=== PATIENT | female | born 1995 | race Caucasian/White ===

== ENCOUNTER 2016-09-10 12:13 | Emergency (ER) | payer BC ==
[~2016-09-10] VITALS: Ht 170.2 cm; Wt 51.0 kg
[2016-09-10 12:14] VITALS: TEMP 36.5; Ht 170.2 cm; Wt 51.0 kg
--- NOTE | 2016-09-10 12:30 | EMERGENCY ROOM VISIT NOTE ---
History Report prepared by [place]: Ana Christie Under the Supervision of: Dr. Richard Husain M.D. First contact with patient: 12:18 Chief Complaint: CARDIAC ASSESSMENT Stated Complaint: FLUTTERING IN CHEST, DIZZY, WEAKNESS, DIARRHEA Nursing Triage Summary: c/o fluttering 1 hr ago and since then has gotten better but has not resolved no c/o pain pt has had diarrhea and is concerned for return of c diff History of Present Illness The patient is a 21 year old female who presents to the Emergency Room with complaints of persistent heart fluttering that began one hour ago. The patient reports a history of SVT and notes that she had a cardiac ablation. She states that she follows with cardiology. The patient additionally notes weakness, dizziness, and shortness of breath. The patient states that she is on control, but denies any history of blood clots. The patient additionally reports a history of c-diff one year ago. She states that when she had c-diff she was not on any antibiotics and she developed c-diff suddenly. The patient states that this morning she developed diarrhea and again denies any recent antibiotic use. She reports two episodes of diarrhea this morning. The patient reports a normal appetite. She denies any chest pain or abdominal pain. Source of History: patient Onset: one hour ago Position: other (heart) Quality: other (fluttering) Timing: other (persistent) Associated Symptoms: + SOB, + diarrhea, + weakness, No chest pain, No abdominal pain Note: Associated Symptoms: dizziness Review of Systems See HPI for pertinent positives & negatives. A total of 10 systems reviewed and were otherwise negative. Past Medical & Surgical Medical Problems: (1) Colitis (2) Seizure (3) Spontaneous pneumothorax (4) Supraventricular tachycardia Surgical Problems: (1) S/p ablation for SVT Family History Blood clots Diabetes mellitus MOTHER (type 2) FH: CAD (coronary artery disease) GRANDFATHER FH: colon cancer GRANDFATHER Social History Smoking Status: Never Smoker Alcohol Use: none Marital Status: single Housing Status: lives with family Occupation Status: student Current/Historical Medications Scheduled Control Pills ( Control Pills), 1 TAB PO DAILY Multiple Vitamin (Multivitamin), 1 TAB PO DAILY Probiotic Product (Probiotic), 1 CAP PO DAILY Scheduled PRN Naproxen Ds (Naprosyn Ds), 550 MG PO BID PRN for Pain Allergies Coded Allergies: No Known Allergies (Unverified , 09/10/16) Physical Exam Vital Signs Date Time Temp Pulse Resp B/P (MAP) Pulse Ox O2 Delivery O2 Flow Rate FiO2 09/10/16 14:34 68 18 98/63 97 Room Air 09/10/16 13:26 70 18 100/58 98 Room Air 09/10/16 12:31 83 09/10/16 12:14 36.5 91 16 142/83 99 Physical Exam GENERAL: Patient is a healthy-appearing well-nourished female HEAD: Normocephalic atraumatic EYES: Ocular movements intact pupils equal and react to light OROPHARYNX mucous membranes are moist no exudates present no erythema or edema present NECK: Supple no nuchal rigidity CHEST: Good equal expansion LUNGS: Clear and equal to auscultation CARDIAC: Normal S1 and S2 ABDOMEN: Soft nontender no guarding BACK: No CVA tenderness EXTREMITIES: No pain upon palpation normal muscle strength in all groups no clubbing cyanosis or edema NEURO: Patient is following commands and answering questions appropriately. Alert and oriented x3 Cranial Nerves 2-12 grossly intact Medical Decision & Procedures ER Provider Diagnostic Interpretation: X-ray results as stated below per interpretation by me and the radiologist: CHEST ONE VIEW PORTABLE HISTORY: Atypical CHEST PAIN COMPARISON: Chest 02/04/2015. FINDINGS: The lungs are clear. Cardiac silhouette is normal in size. No pleural effusions. No pneumothorax. IMPRESSION: No acute process. Electronically signed by: Cruzito Paul M.D. 09/10/2016 1:14 PM Dictated Date/Time: 09/10/2016 1:13 PM Laboratory Results 09/10/16 12:30 Red Blood Count 4.80, Mean Corpuscular Volume 86.9, Mean Corpuscular Hemoglobin 28.5, Mean Corpuscular Hemoglobin Concent 32.9, Mean Platelet Volume 10.1, Neutrophils (%) (Auto) 61.6, Lymphocytes (%) (Auto) 28.6, Monocytes (%) (Auto) 8.0, Eosinophils (%) (Auto) 1.3, Basophils (%) (Auto) 0.5, Neutrophils # (Auto) 3.37, Lymphocytes # (Auto) 1.57, Monocytes # (Auto) 0.44, Eosinophils # (Auto) 0.07, Basophils # (Auto) 0.03 09/10/16 12:30 Test 09/10/16 12:30 White Blood Count 5.48 K/uL (4.8-10.8) Red Blood Count 4.80 M/uL (4.2-5.4) Hemoglobin 13.7 g/dL (12.0-16.0) Hematocrit 41.7 % (37-47) Mean Corpuscular Volume 86.9 fL (80-100) Mean Corpuscular Hemoglobin 28.5 pg (25-34) Mean Corpuscular Hemoglobin Concent 32.9 g/dl (32-36) Platelet Count 214 K/uL (130-400) Mean Platelet Volume 10.1 fL (7.4-10.4) Neutrophils (%) (Auto) 61.6 % Lymphocytes (%) (Auto) 28.6 % Monocytes (%) (Auto) 8.0 % Eosinophils (%) (Auto) 1.3 % Basophils (%) (Auto) 0.5 % Neutrophils # (Auto) 3.37 K/uL (1.4-6.5) Lymphocytes # (Auto) 1.57 K/uL (1.2-3.4) Monocytes # (Auto) 0.44 K/uL (0.11-0.59) Eosinophils # (Auto) 0.07 K/uL (0-0.5) Basophils # (Auto) 0.03 K/uL (0-0.2) RDW Standard Deviation 42.1 fL (36.4-46.3) RDW Coefficient of Variation 13.1 % (11.5-14.5) Immature Granulocyte % (Auto) 0.0 % Immature Granulocyte # (Auto) 0.00 K/uL (0.00-0.02) Anion Gap 8.0 mmol/L (3-11) Est Creatinine Clear Calc Drug Dose 84.0 ml/min Estimated GFR () 112.7 Estimated GFR (Non- 97.3 BUN/Creatinine Ratio 17.3 (10-20) Calcium Level 8.9 mg/dl (8.5-10.1) Total Bilirubin 0.4 mg/dl (0.2-1) Direct Bilirubin 0.1 mg/dl (0-0.2) Aspartate Amino Transf (AST/SGOT) 12 U/L (15-37) Alanine Aminotransferase (ALT/SGPT) 23 U/L (12-78) Alkaline Phosphatase 42 U/L (45-117) Total Creatine Kinase 107 U/L (26-192) Creatine Kinase MB 0.5 ng/ml (0.5-3.6) Creatine Kinase MB Ratio 0.5 (0-3.0) Troponin I < 0.015 ng/ml (0-0.045) Total Protein 7.4 gm/dl (6.4-8.2) Albumin 3.8 gm/dl (3.4-5.0) Lipase 235 U/L (73-393) Labs reviewed by ED physician. ECG Indication: SOB/dyspnea, other (heart fluttering) Rate (beats per minute): 89 Rhythm: normal sinus Findings: no acute ischemic change, no ectopy ED Course 1224: Past medical records reviewed. The patient was evaluated in room B3B. A complete history and physical examination was performed. 1431: I reevaluated the patient and she is resting comfortably. I discussed the exam findings with her and I discussed the treatment plan. She verbalized complete understanding and agreement. She is ready to go home. Medical Decision Differential diagnosis: Etiologies such as cardiac ischemia, aortic dissection, pulmonary embolism, pneumonia, pneumothorax, musculoskeletal, infections, pericarditis, myocarditis , esophageal rupture, gastrointestinal, as well as others were entertained. Medication Reconciliation: I attest that I have personally reviewed the patient' s current medication list Blood Pressure Screening: Patient was found to have normal blood pressure on screening and does not require follow up. Clinical Signs and Symptoms of DVT (No) +3 PE Is #1 Diagnosis, or Equally Likely (No)+3 Heart Rate > 100 +1.5 (No) Immobilization at least 3 days, or Surgery in the Previous 4 weeks +1.5 (No) Previous, objectively diagnosed PE or DVT +1.5 (No) Hemoptysis +1 (No) Malignancy w/ Treatment within 6 mo, or palliative +1 (No) Therefore my suspicion of PE is exceedingly low. The patient was observed for some time in the emergency department area she presents complaining of diarrhea and is concerned she has C. difficile however she has been and unable to provide a stool sample. She was given a prescription to provide a stool sample. I do believe that the patient as well as to be discharged home for follow-up with her primary care physician. Patient family were in agreement with the treatment plan. Impression Primary Impression: Diarrhea Scribe Attestation The scribe's documentation has been prepared under my direction and personally reviewed by me in its entirety. I confirm that the note above accurately reflects all work, treatment, procedures, and medical decision making performed by me. Departure Information Dispostion Home / Self-Care Referrals Brooke Johnson D.O. (PCP) Jonathan Abreu D.O. Forms IMPORTANT VISIT INFORMATION, School Instructions, Work Instructions Patient Instructions ED Palpitations, ED Vomiting Diarrhea Nonspecific Ad, My [facility] Additional Instructions Follow up with DR Abreu Culture results are usually available in approx 48 hours You have been examined and treated today on an emergency basis only. This is not a substitute for, or an effort to provide, complete comprehensive medical care. It is impossible to recognize and treat all injuries or illnesses in a single emergency department visit. It is therefore important that you follow up closely with Dr Johnson. Call as soon as possible for an appointment. Thank you for your time and consideration. I look forward to speaking with you again soon. Please don't hesitate to call us if you have any questions. Problem Qualifiers Primary Impression: Diarrhea Diarrhea type: unspecified type Qualified Codes: R19.7 - Diarrhea, unspecified
[2016-09-10 12:46] LABS: BASO % 0.5 %; BASO ABS # 0.03 K/uL (0-0.2); COMPLETE YES; EOS % 1.3 %; HEMATOCRIT 41.7 % (37-47); LYMPH % 28.6 %; LYMPH ABS # 1.57 K/uL (1.2-3.4); MEAN CELL VOLUME 86.9 fL (80-100); MEAN CORPUSCULAR HEMOGLOBIN 28.5 pg (25-34); MEAN CORPUSCULAR HGB CONC 32.9 g/dl (32-36); MEAN PLATELET VOLUME 10.1 fL (7.4-10.4); NEUT % 61.6 %; PLATELET COUNT 214 K/uL (130-400); WHITE BLOOD COUNT 5.48 K/uL (4.8-10.8)
[2016-09-10 12:55] LABS: ALT/SGPT 23 U/L (12-78); BLOOD UREA NITROGEN 15 mg/dl (7-18); BUN/CREATININE RATIO 17.3 (10-20); CALCIUM 8.9 mg/dl (8.5-10.1); CARBON DIOXIDE 24 mmol/L (21-32); CHLORIDE 106 mmol/L (98-107); CREATININE 0.86 mg/dl (0.60-1.20); GLUCOSE 83 mg/dl (70-99); POTASSIUM 3.8 mmol/L (3.5-5.1); SODIUM 138 mmol/L (136-145)
[2016-09-10 13:00] LABS: ALKALINE PHOSPHATASE 42 U/L (45-117); AST/SGOT 12 U/L (15-37); CKMB/CK RATIO 0.5 (0-3.0)
--- NOTE | 2016-09-10 13:15 | DIAGNOSTIC IMAGING REPORT ---
CHEST ONE VIEW PORTABLE HISTORY: Atypical CHEST PAIN COMPARISON: Chest 02/04/2015. FINDINGS: The lungs are clear. Cardiac silhouette is normal in size. No pleural effusions. No pneumothorax. IMPRESSION: No acute process. Electronically signed by: Cruzito Paul M.D. 09/10/2016 1:14 PM Dictated Date/Time: 09/10/2016 1:13 PM
[2016-09-10 14:34] VITALS: BP 98/63; PULSE 68; O2SAT 97
== END 2016-09-10 14:40 | disposition home or self-care (01) ==
LOC: C.EDB 12:15
DX: R19.7 Diarrhea, unspecified (principal); G40.909 Epilepsy, unspecified, not intractable, without status epilepticus; Z87.19 Personal history of other diseases of the digestive system; Z83.3 Family history of diabetes mellitus; Z82.49 Family history of ischemic heart disease and other diseases of the circulatory system; Z80.0 Family history of malignant neoplasm of digestive organs

== ENCOUNTER → 2016-09-10 | Outpatient (CLI) | payer BC ==
[~2016-09-10] MED LIST: BCPILLS PO; COEN75CA PO; MISCCAP80 PO; MULTTAB58 PO; NAPR-1168 PO; VNCS125 PO; XPNIN INH
== END | disposition home or self-care (01) ==
LOC: C.LAB 16:09
PROVIDERS: ATTEND Family Medicine
DX: R19.7 Diarrhea, unspecified (principal)